=== PATIENT | female | born 1980 | race Caucasian/White ===

== ENCOUNTER 2018-10-13 23:22 | Emergency (ER) | payer OTHER ==
[2018-10-13 23:33] VITALS: BP 134/77; PULSE 100; TEMP 98.1; BMI 62.3
--- NOTE | 2018-10-13 23:53 | PDOC ---
History of Present Illness - General Chief Complaint: Cold Symptoms Stated Complaint: SORE THROAT Time Seen by Provider: 10/13/18 23:37 History Source: Parent(s) - History of Present Illness Initial Comments: 10/14/18 00:52 38 year old female with throat pain and cough x 3 days. reports that son and daughter is with similar symptoms. denies fever/ chills now. denies nVD abdominal pain urinary symptoms 10/15/18 20:42 Past History - Past Medical History Allergies/Adverse Reactions: Allergies Allergy/AdvReac Type Severity Reaction Status Date / Time No Known Allergies Allergy Verified 10/13/18 23:33 Home Medications: Ambulatory Orders Benzocaine/Menthol [Cepacol Sore Throat Lozenge] 1 each MM BID PRN #20 lozenge 10/14/18 Guaifenesin Dm [Robitussin Dm -] 10 ml PO Q8H #1 bottle 10/14/18 - Suicide/Smoking/Psychosocial Hx Smoking History: Never smoked Have you smoked in the past 12 months: No Information on smoking cessation initiated: No Hx Alcohol Use: No Drug/Substance Use Hx: No *Physical Exam - Vital Signs Last Vital Signs Temp Pulse Resp BP Pulse Ox 98.1 F 100 H 16 134/77 100 10/13/18 23:31 10/13/18 23:31 10/13/18 23:31 10/13/18 23:31 10/13/18 23:31 - Physical Exam General Appearance: Yes: Appropriately Dressed HEENT: positive: Other (mild pharyngeal erythema) Respiratory/Chest: positive: Lungs Clear, Normal Breath Sounds Cardiovascular: positive: Regular Rate Gastrointestinal/Abdominal: positive: Normal Bowel Sounds, Soft Extremity: positive: Normal Capillary Refill, Normal Inspection, Normal Range of Motion Neurologic: positive: Fully Oriented, Alert, Normal Mood/Affect *DC/Admit/Observation/Transfer Diagnosis at time of Disposition: Pharyngitis Qualifiers: Pharyngitis/tonsillitis etiology: unspecified etiology Qualified Code(s): J02.9 - Acute pharyngitis, unspecified - Discharge Dispostion Disposition: HOME Condition at time of disposition: Stable - Prescriptions Prescriptions: Benzocaine/Menthol [Cepacol Sore Throat Lozenge] 1 each MM BID PRN #20 lozenge PRN Reason: Pain Guaifenesin Dm [Robitussin Dm -] 10 ml PO Q8H #1 bottle - Referrals Referrals: Betsey Lockett [Primary Care Provider] - - Patient Instructions Printed Discharge Instructions: DI for Common Cold Additional Instructions: gargle with warm salty water take ibuprofen every 6 hours as needed for cough - Post Discharge Activity
[2018-10-14] MEDS ORDERED: IBUPROFEN 600 MG TABLET (FP) PO ONE ×2 (00:10→00:18)
== END 2018-10-14 01:27 | disposition home or self-care (01) ==
LOC: JER 23:22
DX: J02.9 Acute pharyngitis, unspecified (principal)
CPT/HCPCS: 87070; 99281-25

== ENCOUNTER 2018-12-28 21:07 | Emergency (ER) | payer OTHER ==
[2018-12-28 21:35] VITALS: BP 145/79; PULSE 103; TEMP 98.4; BMI 63.3
--- NOTE | 2018-12-28 21:36 | PDOC ---
Rapid Medical Evaluation Chief Complaint: Sore Throat Time Seen by Provider: 12/28/18 21:33 Medical Evaluation: Allergies Allergy/AdvReac Type Severity Reaction Status Date / Time No Known Allergies Allergy Verified 10/13/18 23:33 12/28/18 21:33 I have performed a brief in-person evaluation of this patient. The patient presents with a chief complaint of: Sore throat for 1 week, w/ coughing, sneezing. Sore throat is worsening hence ED visit. Pertinent physical exam findings: bilateral tonsillar erythema/edema with exudates, non deviated uvula I have ordered the following: Rapid strep The patient will proceed to the ED for further evaluation Discharge Disposition - Diagnosis Tonsillitis - Referrals - Patient Instructions - Post Discharge Activity
[2018-12-28] MEDS ORDERED: DEXAMETHASONE LIQUID 0.5 MG/5 ML 240 ML BULK BOTTLE PO ONE (21:40)
[2018-12-28] MEDS ORDERED: DEXAMETHASONE SOD PHOSPHATE 10 MG/1 ML VIAL ONE (21:45)
--- NOTE | 2018-12-28 21:58 | PDOC ---
History of Present Illness - General Chief Complaint: Sore Throat Stated Complaint: SORE THROAT Time Seen by Provider: 12/28/18 21:33 - History of Present Illness Initial Comments: 12/28/18 21:54 38-year-old female presents for evaluation of sore throat Past History - Past Medical History Allergies/Adverse Reactions: Allergies Allergy/AdvReac Type Severity Reaction Status Date / Time No Known Allergies Allergy Verified 10/13/18 23:33 Home Medications: Ambulatory Orders NK [No Known Home Medication] 12/28/18 COPD: No Diabetes: Yes - Suicide/Smoking/Psychosocial Hx Smoking History: Never smoked Have you smoked in the past 12 months: No Information on smoking cessation initiated: No Hx Alcohol Use: No Drug/Substance Use Hx: No Review of Systems - Review of Systems HEENTM: Yes: Throat Pain *Physical Exam - Vital Signs Last Vital Signs Temp Pulse Resp BP Pulse Ox 98.4 F 103 H 18 145/79 100 12/28/18 21:32 12/28/18 21:32 12/28/18 21:32 12/28/18 21:32 12/28/18 21:32 - Physical Exam Comments: 12/28/18 21:55 HEAD: NC/AT EYES: Conjuntiva clear Ears: Canals and TM's normal NOSE: No d/c THROAT: Moist mucous membrances, oral pharanx erythematous with exudate, uvula midline NECK: Supple without adenopathy CARDIAC: S1 S2 LUNGS: CTA Full and Equal breath sounds ABDOMEN: Soft NT ND MS: Full ROM in all joints without edema NEUROLOGIC: No gross sensory or motor deficits, NVID SKIN: Normal color and temperature no lesions or rashes Moderate Sedation - Procedure Monitoring Vital Signs: Procedure Monitoring Vital Signs Temperature 98.4 F 12/28/18 21:32 Pulse Rate 103 H 12/28/18 21:32 Respiratory Rate 18 12/28/18 21:32 Blood Pressure 145/79 12/28/18 21:32 O2 Sat by Pulse Oximetry (%) 100 12/28/18 21:32 ED Treatment Course - Medications Given in the ED: ED Medications Discontinued Medications Generic Name Dose Route Start Last Admin Trade Name Freq PRN Reason Stop Dose Admin Dexamethasone 10 mg 12/28/18 21:40 12/28/18 21:46 Decadron Liquid - PO 12/28/18 21:41 1 ml ONCE ONE Administration *DC/Admit/Observation/Transfer Diagnosis at time of Disposition: Tonsillitis, Strep pharyngitis - Discharge Dispostion Disposition: HOME Condition at time of disposition: Stable Decision to Admit order: No - Referrals Referrals: Betsey Lockett [Primary Care Provider] - - Patient Instructions Printed Discharge Instructions: Strep Throat, DI for Strep Throat Additional Instructions: Your strep test was positive. He was treated in the emergency room with a single dose of penicillin injection. In the steroid which will help her pain and swelling. He do not require further treatment. In the meantime over the next day or so if she require pain medication you may take Tylenol as directed warm salt water gargles will also help with your pain. Your are very care physician one to 2 days for further evaluation and treatment options and return to the emergency room should symptoms worsen or go unresolved. - Post Discharge Activity
[2018-12-28] MEDS ORDERED: PENICILLIN G BENZATHINE 1,200,000 UNIT/2 ML PFS IM ONE (22:11)
[2018-12-28] MEDS ORDERED: PENICILLIN G BENZATHINE 2,400,000 UNIT/4 ML PFS ONE (22:12)
== END 2018-12-28 22:20 | disposition home or self-care (01) ==
LOC: JERFT 21:07
DX: J02.0 Streptococcal pharyngitis (principal); B95.0 Streptococcus, group A, as the cause of diseases classified elsewhere
CPT/HCPCS: 87880; 96372; 99281-25

== ENCOUNTER 2019-08-15 19:30 | Emergency (ER) | payer OTHER | END 2019-08-15 21:26 | disposition home or self-care (01) | LOC: JERFT 19:30 ==

== ENCOUNTER 2019-10-17 08:16 | Emergency (ER) | payer OTHER ==
[2019-10-17 08:22] VITALS: BP 120/65; PULSE 85; TEMP 98.2; BMI 60.2
--- NOTE | 2019-10-17 09:22 | PDOC ---
History of Present Illness - General Chief Complaint: Cold Symptoms Stated Complaint: COUGH Time Seen by Provider: 10/17/19 08:47 History Source: Patient Exam Limitations: Clinical Condition - History of Present Illness Initial Comments: 10/17/19 09:18 Patient with no significant past medical history present with complaint of 2 weeks history of persistent dry cough, nasal congestion, runny nose and intermittent headaches. Denies fever, chills, nausea, vomiting or body aches. Family members home with same symptoms and believe she got symptoms from . Patient did not take anything for symptoms Is this a multiple visit Asthma Patient?: No Timing/Duration: other (2 weeks) Associated Symptoms: reports: denies symptoms Past History - Past Medical History Allergies/Adverse Reactions: Allergies Allergy/AdvReac Type Severity Reaction Status Date / Time No Known Allergies Allergy Verified 08/15/19 20:30 Home Medications: Ambulatory Orders Benzonatate [Tessalon Pearls -] 100 mg PO Q8H PRN #21 capsule 10/17/19 Ipratropium [place] 2 spray NS BID PRN 5 Days #1 spray 10/17/19 Montelukast Na [Singulair -] 10 mg PO HS #7 tablet 10/17/19 COPD: No Diabetes: Yes - Immunization History Immunization Up to Date: No - Psycho Social/Smoking Cessation Hx Smoking History: Never smoked Have you smoked in the past 12 months: No Information on smoking cessation initiated: No Hx Alcohol Use: No Drug/Substance Use Hx: No Review of Systems - Review of Systems Able to Perform ROS?: Yes Is the patient limited Greek proficient: No Constitutional: No: Chills, Fever, Malaise, Weakness HEENTM: Yes: Symptoms Reported, See HPI, Nose Congestion. No: Eye Pain, Blurred Vision, Tearing, Recent change in vision, Double Vision, Cataracts, Ear Pain, Ocular Prothesis, Ear Discharge, Nose Pain, Tinnitus, Nose Bleeding, Hearing Loss, Throat Pain, Throat Swelling, Mouth Pain, Dental Problems, Difficulty Swallowing, Mouth Swelling, Other Respiratory: Yes: Symptoms reported, See HPI, Cough. No: Orthopnea, Shortness of Breath, SOB with Exertion, SOB at Rest, Stridor, Wheezing, Productive cough, Hemoptysis, Other Cardiac (ROS): No: Symptoms Reported, See HPI, Chest Pain, Edema, Irregular Heart Rate, Lightheadedness, Palpitations, Syncope, Chest Tightness, Other ABD/GI: No: Symptoms Reported, Constipated, Diarrhea, Nausea, Vomiting All Other Systems: Reviewed and Negative *Physical Exam - Vital Signs Last Vital Signs Temp Pulse Resp BP Pulse Ox 98.2 F 85 18 120/65 100 10/17/19 08:21 10/17/19 08:21 10/17/19 08:21 10/17/19 08:21 10/17/19 08:21 - Physical Exam Comments: 10/17/19 09:18 GENERAL: Well developed, well nourished. Awake and alert. No acute distress. HEENT: Normocephalic, atraumatic. PERRLA, EOMI. No conjunctival pallor. Sclera are non-icteric. Moist mucous membranes. Oropharynx is clear. NECK: Supple. Full ROM. CARDIOVASCULAR: Regular rate and rhythm. No murmurs, rubs, or gallops. Distal pulses are 2+ and symmetric. PULMONARY: No evidence of respiratory distress. Lungs clear to auscultation bilaterally. No wheezing, rales or rhonchi. ABDOMINAL: Soft. Non-tender. Non-distended. No rebound or guarding. No organomegaly. Normoactive bowel sounds. MUSCULOSKELETAL Normal range of motion at all joints. SKIN: Warm and dry. Normal capillary refill. No rashes. No jaundice. NEUROLOGICAL: Alert, awake, appropriate. Gait is normal without ataxia. PSYCHIATRIC: Cooperative. Good eye contact. Appropriate mood General Appearance: Yes: Nourished, Appropriately Dressed. No: Apparent Distress Medical Decision Making - Medical Decision Making 10/17/19 09:19 Patient with no significant past medical history present with complaint of 2 weeks history of persistent dry cough, nasal congestion, runny nose and intermittent headaches. Denies fever, chills, nausea, vomiting or body aches. Family members home with same symptoms and believe she got symptoms from . Patient did not take anything for symptoms Clinical exam unremarkable with normal lungs exam and patient afebrile. Patient symptoms likely viral URI and stable for discharge on Tessalon Perles as needed for cough and Atrovent nasal spray for congestion and Singulair with PCP follow-up Discharge - Discharge Information Problems reviewed: Yes Clinical Impression/Diagnosis: Cough URI (upper respiratory infection) Qualifiers: URI type: unspecified viral URI Qualified Code(s): J06.9 - Acute upper respiratory infection, unspecified Condition: Stable Disposition: HOME - Admission No - Additional Discharge Information Prescriptions: Benzonatate [Tessalon Pearls -] 100 mg PO Q8H PRN #21 capsule PRN Reason: Cough Ipratropium [place] 2 spray NS BID PRN 5 Days #1 spray PRN Reason: nasal congestion Montelukast Na [Singulair -] 10 mg PO HS #7 tablet - Follow up/Referral Referrals: Betsey Lockett [Primary Care Provider] - - Patient Discharge Instructions Patient Printed Discharge Instructions: DI for Viral Upper Respiratory Infection -- Adult Additional Instructions: Take prescribed medication as prescribed. Increase fluid intake. Follow-up with PCP - Post Discharge Activity
== END 2019-10-17 09:43 | disposition home or self-care (01) ==
LOC: JERFT 08:16
DX: J06.9 Acute upper respiratory infection, unspecified (principal); B97.89 Other viral agents as the cause of diseases classified elsewhere; E11.9 Type 2 diabetes mellitus without complications
CPT/HCPCS: 99282-25